=== PATIENT | male | born 1940 | race Caucasian/White ===

== ENCOUNTER → 2017-02-23 14:34 | Outpatient (CLI) | payer MEDICARE, BC, SELFPAY ==
[2017-02-23 16:36] LABS: Anion Gap 10 (5-15); BUN 23 mg/dL (7-18); BUN/Creat Ratio 21.5 RATIO (10-20); Calcium,Total 8.8 mg/dL (8.5-10.1); Chloride 104 mmol/L (98-107); Cholesterol 253 mg/dL (200); Creatinine, Serum 1.07 mg/dL (0.70-1.30); EST Glomerular Filtration Rate 72 mL/min (>60); Est Glom Filt Rate - Afr Amer 87 mL/min (>60); Glucose 84 mg/dL (70-110); High Density Lipoprotein 62 mg/dL; PSA,Total - Annual Screen 1.74 ng/mL (0.00-4.00); Potassium 3.7 mmol/L (3.5-5.1); Sodium Level 142 mmol/L (136-145); Triglycerides 138 mg/dL; Very Low Density Lipoprotein 28 mg/dL (5-40)
== END ==
PROVIDERS: Family Provider Family Medicine; PCP Family Medicine; Visit Provider Family Medicine
DX: I25.10 Atherosclerotic heart disease of native coronary artery without angina pectoris (principal)
CPT/HCPCS: 36415; 80048; 80061; 84153; G0103

== ENCOUNTER → 2017-07-19 14:21 | Outpatient (CLI) | payer MEDICARE, BC, SELFPAY ==
[2017-07-19 16:22] LABS: AST(SGOT) 13 U/L (15-37); Alanine Aminotransfer ALT/SGPT 22 U/L (16-61); Albumin, Serum 3.6 g/dL (3.2-5.0); Alkaline Phosphatase 63 U/L (45-117); Bilirubin, Direct < 0.05 mg/dL (0.00-0.30); Cholesterol 208 mg/dL (200); Globulin 3.3 g/dL (2.2-4.2); High Density Lipoprotein 49 mg/dL; Protein, Total 6.9 g/dL (6.4-8.2); Triglycerides 93 mg/dL; Very Low Density Lipoprotein 19 mg/dL (5-40)
== END ==
PROVIDERS: Family Provider Family Medicine; PCP Family Medicine; Visit Provider Family Medicine
DX: E78.5 Hyperlipidemia, unspecified (principal)
CPT/HCPCS: 36415; 80061; 80076

== ENCOUNTER → 2018-06-28 11:33 | Outpatient (CLI) | payer MEDICARE, BC, SELFPAY ==
--- NOTE | 2018-06-28 11:41 | RAD_ITS ---
STUDY: X-RAY - LEFT SHOULDER REASON FOR EXAM: Left shoulder pain. TECHNIQUE: 4 view(s) of the shoulder. COMPARISON: None. FINDINGS: Normal glenohumeral articulation. Normal acromioclavicular joint. Normal acromion. Normal humeral head and visualized proximal humerus. There is supraspinatus calcific peritendinitis. Normal visualized pulmonary apex. RAD/Shoulder min 2 Views IMPRESSION: Supraspinatus calcific peritendinitis. Electronically Signed: Noble Diallo MD at 15:35 EDT Tel , Service support ,
== END ==
PROVIDERS: Family Provider Family Medicine; PCP Family Medicine; Referring Provider Family Medicine; Visit Provider Family Medicine
DX: M25.512 Pain in left shoulder (principal)
CPT/HCPCS: 73030

== ENCOUNTER 2018-07-12 14:59 | Outpatient (RCR) | payer MEDICARE, BC, SELFPAY ==
--- NOTE | 2018-07-12 16:24 | HP.PTEVAL_ITS ---
Patient's Visit Information MIGUEL MOSLEY is a 78 year old M referred to Physical Therapy by Ulises Schultz MD with a diagnosis of L shoulder pain. Date of Evaluation: 07/12/18 Physical Therapist: Zain Avila, VICKYT, OCS, CSCS - Visit Plan Frequency: 1x/Week Duration: once in 2 weeks Plan: Patient doing 85% better than when he was seeing doctor. Will work on avoiding aggravating activities and activity modification per homework and posture and f/u in two weeks as needed for psotural /RC strength if desired. Will call prior if condition does not continue to improve. - Subjective Findings: 30 years ago had gentle injury to shoulder. Never fully recovered but has been ok. 3 weeks ago got severe pain after work. Concerned him so he called Dr. Schultz adn scheduled. This pain is anterior adn insidious onset once he got home from work. Antoine put on high dose aspirin. 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 Combing hair is minor discomfort. Comfortable at rest. Has to sleep on R side but L side is normal for him and he cannot do that. Is 85% better now. Is a retired postal employee. Works at [employer] in [employer] and [employer] and does some lifting and that is not a problem anymore. Hobbies include building furniture. Threw firewood today and did well. Not happy to be here adn not sure he needs it. - Pain L shoulder Pain Intensity (Out of 10): 0 Pain Intensity Range: 0, 7 - Objective + L flowers slightly and L neer slightly. L ext rotation painful slightly to resisted. AROM B UE shoulder elbow wrist WNL, slight pain end L elevation. Strength B shoulders and elbows 4+/5 except L ext rotation 4/5 adn slight pain. reflexes 2/3 bi and tri B. Sensation WNL to gross light touch in UE. Scap move well but posture is forward and protracted adn slightly limited in depression. C/S AROM WNL and without pain. - Goals Goal 1:: Patient report 99% improvement in overall condition Goal Time Frame: 2-4 Weeks Goal 2:: Pt I in management of condition Goal Time Frame: 2-4 Weeks - Rehabilitation Potential Physical Therapy Diagnosis: Improving L shoulder tendonitis Rehabilitation Potential: Good - Anticipated Interventions Patient/Client Instruction: Educate patient on: Condition, Plan of Care, Risk Factors For the Purpose of:: To decrease pain, To increase tolerance to activity/condition/position Therapeutic Exercise to Include: Strength training Comment: activitiy modification For the Purpose of:: To decrease pain, To increase tolerance to activity/condition/position Thank you for the opportunity to evaluate your patient. For Medicare and Medicare HMO plans, please review the plan of care and approve it. It will need to be FAXED BACK to us at [phone] for Medicare purposes. For Medicare only, by signing this I certify the plan of care. Please let me know if there are questions or concerns regarding this plan of care. Physician Signature: Date:
--- NOTE | 2018-09-25 13:48 | HP.PT.NRP ---
HP - Discharge Summary (1) - Patient Information MIGUEL MOSLEY was seen in my office for initial evaluation on 07/12/18. The following Plan of Care was established for this patient: Initial Frequency: 1x/Week Initial Duration: once in 2 weeks - Anticipated Interventions Patient/Client Instruction: Educate patient on: Condition, Plan of Care, Risk Factors For the Purpose of:: To decrease pain, To increase tolerance to activity/condition/position Therapeutic Exercise to Include: Strength training For the Purpose of:: To decrease pain, To increase tolerance to activity/condition/position This patient was last seen in our office 07/12/18. Pertinent comments regarding their Physical therapy will appear below: Pt seen for initial evaluation adn plan of care established. Pt cancelled f/u visit and has neglected to reschedule or return. At this point, it has been over two months adn I will disocontinue due to nonattendance. At this point I will be discontinuing this patient from physical therapy. I would be happy to see this patient again in the future if found appropriate by the physician. Thank you! Zain Avila, DPT, OCS, CSCS
== END 2018-07-12 19:00 | disposition home or self-care (01) ==
LOC: PT 14:59
PROVIDERS: Family Provider Family Medicine; PCP Family Medicine; Referring Provider Family Medicine; Visit Provider Family Medicine
DX: M25.512 Pain in left shoulder (principal)
CPT/HCPCS: 97110; 97161

== ENCOUNTER → 2019-08-30 13:09 | Outpatient (CLI) | payer MEDICARE, BC, SELFPAY ==
--- NOTE | 2019-08-30 09:30 | LES_PTH ---
PATIENT: MIGUEL MOSLEY LOC: LAB U#:[id number] AGE/SX: 84/M ROOM: RE08/30/[address]: Ulises Schultz : 1940 BED: DIS: SPEC #: [id number] RECD: 08/30/19 12:05 STATUS: HEATH SUNG #: [id number] DIANE: 08/30/19 09:[address]: Ulises Schultz DEPT: SURGICAL PATHOLOGY RECD BY: Jose Alberto Serrano ENTERED: 08/30/19 13:58 SP TYPE: Lesion OTHR DR: Dr. Ulises Schultz MD Tissues: Skin of back, NOS Procedures: Surgery Specimen Level IV HEADER OPERATION: Skin excision PRE-OP DIAGNOSIS: Suspicious skin lesion TISSUE SUBMITTED: Back neoplasm MICROSCOPIC DIAGNOSIS Skin lesion, back, excisional biopsy: Inflamed verrucous keratosis. Negative for malignancy. SJ:kendrick 09/02/19 MICROSCOPIC DESCRIPTION Slides are reviewed. GROSS DESCRIPTION Received in fixative is one container labeled with the patient's name and designated back neoplasm. The specimen consists of a piece of butler-white skin measuring 1 x 0.7 x 0.5 cm. The specimen is inked, serially sectioned and submitted entirely in one cassette. / ALETA:kendrick 08/30/19 TC:5 CPT: 47801
== END ==
PROVIDERS: PCP Family Medicine; Referring Provider Family Medicine; Visit Provider Family Medicine
DX: L98.9 Disorder of the skin and subcutaneous tissue, unspecified (principal)
CPT/HCPCS: 88305